=== PATIENT | male | born 1950 | race Two or more races ===

== ENCOUNTER 2017-10-22 13:11 | Emergency (ER) | payer MEDICARE, OTHER ==
[~2017-10-22] VITALS: Ht 162.6 cm; Wt 99.8 kg
[2017-10-22 13:30] VITALS: BP 158/62
[2017-10-22 14:15] VITALS: BP_SYST 108; BP_SYST 117; BP_SYST 125; BP_DIAS 52; BP_DIAS 59; BP_DIAS 62
--- NOTE | 2017-10-22 14:22 | Diagnostic Imaging Report ---
Indication: Abdominal pain Comparison: None Single view of the abdomen obtained Findings: Bowel gas pattern is nonspecific. No mass, ectopic calcifications, or abnormal gas collections are identified. The bones are osteopenic. Impression: No acute findings
--- NOTE | 2017-10-22 14:23 | Diagnostic Imaging Report ---
Indication: Dyspnea Comparison: None A single view chest radiograph was obtained. Findings: No definite infiltrate or pulmonary vascular congestion identified. The heart is enlarged. The aorta is mildly enlarged consistent with atherosclerotic vascular disease. The bones are osteopenic. Impression: No acute disease
[2017-10-22 14:28] LABS: BASOPHILS % (AUTO) 0.7 % (0.0-2.0); EOSINOPHILS % (AUTO) 3.3 % (0.0-3.0); HEMATOCRIT 39.1 % (42.0-52.0); HEMOGLOBIN 13.9 G/DL (14.2-18.0); LYMPHOCYTES % (AUTO) 21.1 % (20.0-45.0); MEAN CORPUSCULAR VOLUME 89 FL (80-99); NEUTROPHILS % (AUTO) 67.9 % (45.0-75.0); PLATELET COUNT 280 K/UL (150-450); RED CELL DISTRIBUTION WIDTH 11.3 % (11.6-14.8); WHITE BLOOD COUNT 9.7 K/UL (4.8-10.8)
[2017-10-22] MEDS ORDERED: FLOMAX0.4 MG ORAL (14:31)
[2017-10-22] MEDS ORDERED: OMEPRAZOLE20 M2 ORAL (14:31)
[2017-10-22] MEDS ORDERED: GLIPIZIDE5 MG ORAL (14:31)
[2017-10-22] MEDS ORDERED: METFORMIN HCL1000 M1 ORAL (14:31)
[2017-10-22] MEDS ORDERED: AMLODIPINE BES2.5 MG ORAL (14:32)
[2017-10-22] MEDS ORDERED: LOSARTAN POTASS50 MG ORAL (14:32)
[2017-10-22 14:41] LABS: ANION GAP 8 mmol/L (5-15); BLOOD UREA NITROGEN 12 mg/dL (7-18); CALCIUM 8.9 MG/DL (8.5-10.1); CARBON DIOXIDE 25 MMOL/L (21-32); CHLORIDE 94 MMOL/L (98-107); POTASSIUM 4.3 MMOL/L (3.5-5.1); SODIUM 126 MMOL/L (136-145)
[2017-10-22 14:46] LABS: INR 0.9 (0.9-1.1)
[2017-10-22 14:49] LABS: ALANINE AMINOTRANSFERASE 38 U/L (12-78); ALBUMIN 3.9 G/DL (3.4-5.0); ALBUMIN/GLOBULIN RATIO 1.2 (1.0-2.7); ALKALINE PHOSPHATASE 73 U/L (46-116); ASPARTATE AMINO TRANSFERASE 14 U/L (15-37); BILIRUBIN,TOTAL 0.5 MG/DL (0.2-1.0)
[2017-10-22 15:40] VITALS: BP 129/69
[2017-10-22 15:52] LABS: APPEARANCE,URINE CLEAR; BILIRUBIN, URINE NEGATIVE (NEGATIVE); GLUCOSE, URINE (UA) NEGATIVE (NEGATIVE); KETONES,URINE NEGATIVE (NEGATIVE); LEUKOCYTE ESTERASE ,URINE NEGATIVE (NEGATIVE); NITRITE,URINE NEGATIVE (NEGATIVE); PH,URINE 6 (4.5-8.0); PROTEIN,URINE NEGATIVE (NEGATIVE); UROBILINOGEN,URINE NORMAL MG/DL (0.0-1.0)
[2017-10-22 15:54] LABS: COLOR,URINE YELLOW
--- NOTE | 2017-10-22 16:12 | Emergency Room Report ---
History of Present Illness General Chief Complaint: Gastrointestinal Bleed Source: Patient Present Illness HPI Patient presents with 2 days of rectal bleeding. He has a photo of blood in the toilet and on TP. Denies pain, fever, NV. Spends a lot of time sitting on toilet and even sometimes falls asleep there while either urinating or moving bowels. No colonoscopy. He denies dizziness when he stands, chest pain, dyspnea. No bruising or other bleeding. He takes fiber daily. Had endoscopy several years ago, reason unclear (possibly gastritis or ulcer). Was seen by PMD and advised to come to ED. H/O HTN and DM. On oral meds. States glucose fairly well controlled. Anxious about the bleeding. Allergies: Coded Allergies: No Known Allergies (Unverified , 10/22/17) Patient History Past Medical History: see triage record Social History: Denies: smoking Social History Narrative Reviewed Nursing Documentation: PMH: Agreed; PSxH: Agreed Nursing Documentation-PMH Past Medical History: No History, Except For Hx Cardiac Problems: No - high cholesterol Hx Hypertension: Yes Hx Pacemaker: No Hx Asthma: No Hx COPD: No Hx Diabetes: Yes Hx Cancer: No Hx Gastrointestinal Problems: No Hx Dialysis: No History Of Psychiatric Problem: No Hx Neurological Problems: No Hx Cerebrovascular Accident: No Hx Seizures: No Review of Systems All Other Systems: negative except mentioned in HPI Physical Exam Vital Signs Date Time Temp Pulse Resp B/P (MAP) Pulse Ox O2 Delivery O2 Flow Rate FiO2 10/22/17 13:20 98.0 80 16 121/68 94 Room Air 98.1 Sp02 EP Interpretation: reviewed, normal - slightly low as interpreted by me General Appearance: well appearing, no apparent distress, GCS 15, obese Head: normocephalic Eyes: bilateral eye normal inspection, bilateral eye PERRL ENT: moist mucus membranes Neck: supple Respiratory: lungs clear, normal breath sounds Cardiovascular #1: regular rate, rhythm Cardiovascular #2: 2+ radial (R) Gastrointestinal: normal inspection, normal bowel sounds, non tender, no mass, non-distended Rectal: heme positive stool - brown color, other - no external hemorrhoids, no masses felt Genitourinary: no CVA tenderness Musculoskeletal: back normal, gait/station normal, normal range of motion Neurologic: alert, oriented x3 Skin: normal inspection, warm/dry Medical Decision Making Diagnostic Impression: Primary Impression: Lower gastrointestinal bleed Additional Impression: Diabetes Qualified Codes: E11.9 - Type 2 diabetes mellitus without complications ER Course Patient presents after passing blood per rectum in past 2 days. DDx: hemorrhoids, diverticulitis, metastatic lesion amongst others. Evaluation with EKG, abd films, CXR, labs. IV extablished and will perform cariac monitor. Bit appear anemic. Consideration for admission if abnormal VS or labs EKG no injury. CXR, unremarkable, Abd films - NSBGP, no obstruction. Labs with good H/H and WBC. CMP significant for elevated glucose and slightly low sodium. Hemodynamically stable and no evidence of more bleedgin. Discussed with patient need for colonoscopy. He and want to go home. Patient stable for outpatient observation and treatment. Laboratory Tests Test 10/22/17 13:55 10/22/17 14:30 White Blood Count 9.7 K/UL (4.8-10.8) Red Blood Count 4.40 M/UL (4.70-6.10) L Hemoglobin 13.9 G/DL (14.2-18.0) L Hematocrit 39.1 % (42.0-52.0) L Mean Corpuscular Volume 89 FL (80-99) Mean Corpuscular Hemoglobin 31.5 PG (27.0-31.0) H Mean Corpuscular Hemoglobin Concent 35.5 G/DL (32.0-36.0) Red Cell Distribution Width 11.3 % (11.6-14.8) L Platelet Count 280 K/UL (150-450) Mean Platelet Volume 5.3 FL (6.5-10.1) L Neutrophils (%) (Auto) 67.9 % (45.0-75.0) Lymphocytes (%) (Auto) 21.1 % (20.0-45.0) Monocytes (%) (Auto) 7.0 % (1.0-10.0) Eosinophils (%) (Auto) 3.3 % (0.0-3.0) H Basophils (%) (Auto) 0.7 % (0.0-2.0) Prothrombin Time 9.8 SEC (9.30-11.50) Prothrombin Time INR 0.9 (0.9-1.1) PTT 29 SEC (23-33) Sodium Level 126 MMOL/L (136-145) L Potassium Level 4.3 MMOL/L (3.5-5.1) Chloride Level 94 MMOL/L (98-107) L Carbon Dioxide Level 25 MMOL/L (21-32) Anion Gap 8 mmol/L (5-15) Blood Urea Nitrogen 12 mg/dL (7-18) Creatinine 1.0 MG/DL (0.55-1.30) Estimate Glomerular Filtration Rate > 60 mL/min (>60) Glucose Level 192 MG/DL (74-106) H Calcium Level 8.9 MG/DL (8.5-10.1) Total Bilirubin 0.5 MG/DL (0.2-1.0) Aspartate Amino Transferase (AST) 14 U/L (15-37) L Alanine Aminotransferase (ALT) 38 U/L (12-78) Alkaline Phosphatase 73 U/L (46-116) Troponin I 0.000 ng/mL (0.000-0.056) Total Protein 7.1 G/DL (6.4-8.2) Albumin 3.9 G/DL (3.4-5.0) Globulin 3.2 g/dL Albumin/Globulin Ratio 1.2 (1.0-2.7) Lipase 155 U/L (73-393) Urine Color Yellow Urine Appearance Clear Urine pH 6 (4.5-8.0) Urine Specific [place] 1.010 (1.005-1.035) Urine Protein Negative (NEGATIVE) Urine Glucose (UA) Negative (NEGATIVE) Urine Ketones Negative (NEGATIVE) Urine Occult Blood Negative (NEGATIVE) Urine Nitrite Negative (NEGATIVE) Urine Bilirubin Negative (NEGATIVE) Urine Urobilinogen Normal MG/DL (0.0-1.0) Urine Leukocyte Esterase Negative (NEGATIVE) EKG Diagnostic Results Rate: normal Rhythm: NSR ST Segments: no acute changes Rhythm Strip Diag. Results EP Interpretation: yes Rhythm: NSR, no PVC's, no ectopy Chest X-Ray Diagnostic Results Chest X-Ray Diagnostic Results : Chest X-Ray Ordered: Yes # of Views/Limited/Complete: 1 View Interpretation: no consolidation, no effusion, no pneumothorax Impression: No acute disease Electronically Signed by: Norris Moran MD Other X-Ray Diagnostic Results Other X-Ray Diagnostic Results : X-Ray ordered: abd # of Views/Limited Vs Complete: 2 View Indication: Other Interpretation: no dislocation, nonspecific bowel gas, no sbo, other - inc stool Last Vital Signs Date Time Temp Pulse Resp B/P (MAP) Pulse Ox O2 Delivery O2 Flow Rate FiO2 10/22/17 16:31 98.5 89 19 122/51 96 Room Air Status: improved Disposition: HOME, SELF-CARE Condition: Improved Scripts Lactulose (LACTULOSE*) 20 Gm/30 Ml Solution 30 ML ORAL BID, #240 ML 0 Refills Prov: Norris Moran M.D. 10/22/17 Hydrocortisone Acetate* (ANUSOL-HC*) 25 Mg Supp.rect 1 SUPP RECTAL TWICE A DAY, #14 SUPP Prov: Norris Moran M.D. 10/22/17 Referrals: [facility],REFERRING (PCP) Norris Moran M.D. October 22, 2017 16:12
[2017-10-22] MEDS ORDERED: ANUSOL-HC25 MG RECTAL (16:20)
[2017-10-22] MEDS ORDERED: LACTULOSE20 GM/301 ORAL (16:20)
[2017-10-22 16:31] VITALS: BP 122/51
== END 2017-10-22 16:36 | disposition home or self-care (01) ==
LOC: EMR 14:09 → CANBEDREQ 16:14 → EMR 16:36
DX: K92.2 Gastrointestinal hemorrhage, unspecified (principal); E11.9 Type 2 diabetes mellitus without complications; I10 Essential (primary) hypertension
CPT/HCPCS: 36415; 71045; 74018; 80053; 81003; 82962; 83690; 84484; 85025; 85610; 85730; 86850; 86900; 86901; 93005; 99284

== ENCOUNTER 2018-03-15 06:11 | Day surgery (SDC) | payer MEDICARE ==
[~2018-03-15] VITALS: Ht 162.6 cm; Wt 104.3 kg
[2018-03-15] VITALS (11 sets, daily range): BP systolic 118–148; BP diastolic 54–84
[~2018-03-15 06:11] MED LIST: AMLODIPINE BES2.5 MG ORAL; ANUSOL-HC25 MG RECTAL; FLOMAX0.4 MG ORAL; GLIPIZIDE5 MG ORAL; LACTULOSE20 GM/301 ORAL; LOSARTAN POTASS50 MG ORAL; METFORMIN HCL1000 M1 ORAL; OMEPRAZOLE20 M2 ORAL; Vancomycin Intravitreal Inj LEFT EYE ONE
[2018-03-15] MEDS: Cyclopentolate 1% Opth Sol 2ml LEFT EYE SCH ×4 (06:29→07:05)
[2018-03-15] MEDS: Ciprofloxacin Opth Soln 2.5ml LEFT EYE SCH ×4 (06:30→07:05)
[2018-03-15] MEDS ORDERED: EPINEPHrine 1mg/1ml Amp ONE ×2 (06:30→07:58)
[2018-03-15] MEDS: Diclofenac Sod 0.1% Op Soln LEFT EYE SCH ×4 (06:30→07:05)
[2018-03-15] MEDS: Phenylephrine 10% Opth Soln 5ml LEFT EYE SCH ×4 (06:30→07:05)
[2018-03-15] MEDS ORDERED: Dexamethasone 4mg/ml vial ONE (06:31)
[2018-03-15] MEDS ORDERED: BSS 500ml btl ONE (06:31)
[2018-03-15] MEDS ORDERED: Lidocaine 4% Amp ONE (06:31)
[2018-03-15] MEDS ORDERED: Lidocaine 1% MPF 10mg/ml 5ml ONE ×2 (06:31→06:53)
[2018-03-15] MEDS ORDERED: Carbachol 0.01% Op Soln 1.5ml vial ONE (06:31)
[2018-03-15] MEDS ORDERED: Pred Forte 1% Opth Susp 1ml ONE (06:31)
[2018-03-15] MEDS ORDERED: Lidocaine 2% MPF 5ml Vial INJ ONE (06:31)
[2018-03-15] MEDS ORDERED: Sodium Hyaluronate 14 mg/ml 0.85ml ONE (06:32)
[2018-03-15] MEDS ORDERED: Tetracaine 0.5% Opth 4ml Soln ONE (06:32)
[2018-03-15] MEDS ORDERED: BSS 15ml BTL ONE (06:32)
[2018-03-15] MEDS ORDERED: Povidone-Iodine 5% opth solution ONE (06:32)
[2018-03-15] MEDS ORDERED: Akten 3.5% 1ml Btl ONE (06:41)
[2018-03-15] MEDS: Akten 3.5% 1ml Btl LEFT EYE SCH ×3 (06:47→07:10)
[2018-03-15] MEDS ORDERED: Lidocaine 2% 20mg/ml/Epi 0.005mg/ml 20ml vial ONE (06:51)
[2018-03-15] MEDS ORDERED: Midazolam 2mg/2ml Inj ONE (06:53)
[2018-03-15] MEDS ORDERED: DiphenhydrAMINE 50mg/ml Inj ONE (06:53)
[2018-03-15] MEDS ORDERED: fentaNYL 100 mcg/2 mL IV ONE (06:53)
[2018-03-15] MEDS ORDERED: LR 1000ml 1,000 ML IVLG SCH (06:59)
--- NOTE | 2018-03-15 06:59 | Anethesia Preoperative Eval ---
Anesthesia Pre-op PMH/ROS General Date of Evaluation: Mar 15, 2018 Anesthesiologist: Nelson ASA Score: ASA 2 Mallampati Score Class I : Soft palate, uvula, fauces, pillars visible Class II: Soft palate, uvula, fauces visible Class III: Soft palate, base of uvula visible Class IV: Only hard plate visible Mallampati Classification: Class II Surgeon: Deanna Diagnosis: Left cataract Surgical Procedure: Left cataract extraction with IOL Anesthesia History: none Family History: no anesthesia problems Allergies: Coded Allergies: No Known Allergies (Unverified , 10/22/17) Medications: see eMAR Past Medical History Cardiovascular: Reports: HTN; Denies: CAD, [place], valve dz, arrhythmia, other Pulmonary: Denies: asthma, COPD, LIV[place], other Gastrointestinal/Genitourinary: Denies: GERD, CRI, ESRD, other Neurologic/Psychiatric: Denies: dementia, CVA, depression/anxiety, TIA, other Endocrine: Reports: DM; Denies: hypothyroidism, steroids, other HEENT: Denies: cataract (L), cataract (R), glaucoma, [place] (L), [place] (R), other Hematology/Immune: Denies: anemia, DVT, bleeding disorder, other Musculoskeletal/Integumentary: Denies: OA, RA, DJD, DDD, edema, other Other: obesity PSxH Narrative: Denies Anesthesia Pre-op Phys. Exam Physician Exam Last Vital Signs Date Time Temp Pulse Resp B/P (MAP) Pulse Ox O2 Delivery O2 Flow Rate FiO2 03/15/18 06:53 Room Air 03/15/18 06:45 98.0 75 18 128/67 (87) 96 98.0 Constitutional: NAD Cardiovascular: RRR Respiratory: CTA Airway Exam Mallampati Score: Class II MO: full ROM: full Teeth: intact Anesthesia Pre-op A/P Labs see chart Studies Pre-op Studies: EKG - sr Risk Assessment & Plan Assessment: ASA II Plan: MAC Status Change Before Surgery: No Pre-Antibiotics Drug: N/A Florence Shafer MD Mar 15, 2018 06:59
[2018-03-15] MEDS ORDERED: DiphenhydrAMINE 50mg/ml Inj IVP PRN (07:00)
[2018-03-15] MEDS ORDERED: ATORVASTATIN CA40 MG ORAL (07:03)
[2018-03-15] MEDS ORDERED: MYRBETRIQ25 MG PO (07:03)
[2018-03-15] MEDS ORDERED: BYDUREON2 MG SUBQ (07:03)
[2018-03-15] MEDS ORDERED: COSOPT PF EYE1 EAC1 OP (07:03)
[2018-03-15] MEDS ORDERED: FERROUS SULFAT325 MG ORAL (07:03)
[2018-03-15] MEDS ORDERED: SYNTHROID25 MCG ORAL (07:03)
[2018-03-15] MEDS ORDERED: PANTOPRAZOLE SO40 MG ORAL (07:03)
[2018-03-15] MEDS ORDERED: DOCUSATE SODIU100 MG ORAL (07:03)
--- NOTE | 2018-03-15 07:28 | Pre-Procedure Note/Attestation ---
Pre-Procedure Note/Attestation Complete Prior to Procedure Planned Procedure: left Procedure Narrative: Cataract extraction with intraocular lens Indications for Procedure Pre-Operative Diagnosis: Cataract Attestation I attest that I discussed the nature of the procedure; its benefits; risks and complications; and alternatives (and the risks and benefits of such alternatives ), prior to the procedure, with the patient (or the patient's legal sales representative girls' apparel). I attest that, if there was a reasonable possibility of needing a blood transfusion, the patient (or the patient's legal sales representative girls' apparel) was given the [facility] standardized written summary, pursuant to the [place] Blood Safety Act ([place] Health and Safety Code # 1645, as amended). I attest that I re-evaluated the patient just prior to the surgery and that there has been no change in the patient's H&P, except as documented below: Edwin Huerta MD Mar 15, 2018 07:28
[2018-03-15] MEDS ORDERED: Sterile Water Irrig 1000ml IRRIG ONE (07:30)
[2018-03-15] MEDS ORDERED: NS Irrig 1000ml ONE (07:30)
--- NOTE | 2018-03-15 08:36 | Immediate Post-Op Evaluation ---
Immediate Post-Op Evalulation Immediate Post-Op Evalulation Procedure: LEft cataract extraction with IOL Date of Evaluation: Mar 15, 2018 Time of Evaluation: 08:37 IV Fluids: 300 Blood Products: 0 Estimated Blood Loss: 0 Urinary Output: 0 Blood Pressure Systolic: 146 Blood Pressure Diastolic: 84 Pulse Rate: 85 Respiratory Rate: 17 O2 Sat by Pulse Oximetry: 96 Temperature (Fahrenheit): 98.4 Pain Score (1-10): 0 Nausea: No Vomiting: No Complications 0 Patient Status: awake, reacts, patent, none Hydration Status: adequate Drug: N/A Florence Shafer MD Mar 15, 2018 08:36
--- NOTE | 2018-03-15 08:36 | 48 Hour Post Anesthesia Eval ---
Post Anesthesia Evaluation Procedure: LEft cataract extraction with IOL Date of Evaluation: Mar 15, 2018 Airway: patent Nausea: No Vomiting: No Pain Intensity: 0 Hydration Status: adequate Cardiopulmonary Status: at baseline Mental Status/LOC: patient returned to baseline Post-Anesthesia Complications: 0 Follow-up care needed: ready to discharge Florence Shafer MD Mar 15, 2018 08:36
--- NOTE | 2018-03-15 08:45 | Operative Note - PDOC ---
Operative Note Operative Note Date of Operation/Procedure: Mar 15, 2018 Chief Complaint: poor vision Pre-op Diagnosis: Cataract Procedure: Phacoemulsification with primary implantation of intraocular lens, left eye, complex Post-op Diagnosis: Cataract Post-op Diagnosis: same as pre-op Surgeon: Edwin Huerta Anesthesiologist: Mariana Damon Anesthesia: MAC Specimen: none Complications: none Condition: stable Estimated Blood Loss: none Drains: none Implant(s) used?: Yes Indications for Procedure Poor vision Description of Procedure See dictation Edwin Huerta MD Mar 15, 2018 08:45
--- NOTE | 2018-03-15 20:00 | Operative Note - Dictated ---
DATE OF OPERATION: 03/15/2018 SURGEON: Edwin Huerta M.D. IMMIGRATION OFFICER: None. ANESTHESIA: MAC by Mariana Damon. PREOPERATIVE DIAGNOSES: 1. 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 2. Advanced open-angle glaucoma. POSTOPERATIVE DIAGNOSES: 1. 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 2. Advanced open-angle glaucoma. PRINCIPAL PROCEDURE: Phacoemulsification with primary implantation of posterior chamber intraocular lens, left eye, complex. DESCRIPTION OF PROCEDURE: The patient was evaluated in my office where he was diagnosed with glaucoma in both eyes with severe decreased vision in the left eye. He had moderate degree of cataract, but much more decreased vision than cataract. His intraocular pressure was significantly reduced with topical medications and he underwent laser trabeculoplasty to further reduce pressure. In addition to topical drops, we decided to proceed with cataract extraction in the eye to maximize his potential visual acuity. The risks, benefits, and alternatives were discussed with associated very guarded prognosis. Informed consent was obtained. The patient was therefore brought to the [facility] where the left pupil was dilated and an intravenous line was started. He was brought into the operating room where ocular anesthesia was obtained with topical drops supplemented with intravenous sedation. The left eye was then prepped and draped in the usual fashion for intraocular surgery. A clear corneal temporal incision was made in the anterior chamber filled with Shugarcaine and viscoelastic. The pupil did not dilate well and therefore a 6.25 mm Malyugin ring was positioned to expand the pupil and maintain the iris architecture. A continuous tear capsulotomy was accomplished. Hydrodissection was utilized to facilitate phacoemulsification. A two-handed phacoemulsification technique was then used to fracture the lens nucleus into quadrants and the segments removed in sequence. Irrigation/aspiration hand piece was used to remove all residual lens cortex and yi the posterior capsule. Viscoelastic was introduced. A posterior chamber intraocular lens from [employer], model ZCB00 with a power of 21.5 diopters was folded into the lens insertion cartridge, injected into the posterior chamber of the eye and positioned within the capsular bag. The Malyugin ring was removed. The viscoelastic was removed. The wound was adjusted, made watertight without sutures. Miostat was irrigated to bring the pupil back down over the optic. The intraocular pressure was adjusted to normal. One drop of 10% Betadine, one drop of prednisolone acetate, and one drop of Vigamox were placed on the eye. The eye was covered with an eye shield. This completed the procedure. All sponge and needle counts were correct. The patient was taken to the [facility] in good condition having tolerated the procedure well. Edwin Huerta M.D. DR: TRENT JOB#: [id number] CC: Compa Cole M.D.; Fax#: [phone]
== END 2018-03-15 10:20 | disposition home or self-care (01) ==
LOC: SUR 06:11
DX: H25.812 Combined forms of age-related cataract, left eye (principal); H40.10X0 Unspecified open-angle glaucoma, stage unspecified; I44.0 Atrioventricular block, first degree; E11.9 Type 2 diabetes mellitus without complications; Z79.84 Long term (current) use of oral hypoglycemic drugs; I10 Essential (primary) hypertension; E78.5 Hyperlipidemia, unspecified; E66.2 Morbid (severe) obesity with alveolar hypoventilation; G47.30 Sleep apnea, unspecified; Z79.82 Long term (current) use of aspirin
CPT/HCPCS: 66982; 82962; J0171; J1100; J1200; J2250; J3010; J3370; V2632; 94003; 94150

== ENCOUNTER 2018-09-27 05:13 | Day surgery (SDC) | payer OTHER ==
[~2018-09-27] VITALS: Ht 162.6 cm; Wt 92.5 kg
[2018-09-27] VITALS (7 sets, daily range): BP systolic 127–141; BP diastolic 68–83
[~2018-09-27 05:13] MED LIST changes: +ATORVASTATIN CA20 MG ORAL; +ATORVASTATIN CA40 MG ORAL; +BYDUREON2 MG SUBQ; +COMBIGAN EYE DRO5 ML OP; +COSOPT PF EYE1 EAC1 OP; +DOCUSATE SODIU100 MG ORAL; +FERROUS SULFAT325 MG ORAL; +GLIPIZIDE10 MG PO; +LOSARTAN POTASS25 M1 PO; +LUMIGAN2.5 ML BOTH EYES; +MYRBETRIQ25 MG PO; +NORVASC5 MG ORAL; +PANTOPRAZOLE SO40 MG ORAL; +SYNTHROID25 MCG ORAL; +TAMSULOSIN HCL0.4 MG ORAL; -Vancomycin Intravitreal Inj LEFT EYE ONE
[2018-09-27] MEDS: Ciprofloxacin Opth Soln 2.5ml RIGHT EYE SCH ×4 (05:58→06:37)
[2018-09-27] MEDS: Akten 3.5% 1ml Btl RIGHT EYE SCH ×4 (05:58→06:37)
[2018-09-27] MEDS: Phenylephrine 10% Opth Soln 5ml RIGHT EYE SCH ×4 (05:59→06:37)
[2018-09-27] MEDS: Cyclopentolate 1% Opth Sol 2ml RIGHT EYE SCH ×4 (05:59→06:37)
[2018-09-27] MEDS: Diclofenac Sod 0.1% Op Soln RIGHT EYE SCH ×4 (05:59→06:37)
[2018-09-27] MEDS ORDERED: Lidocaine 1% MPF 10mg/ml 5ml ONE ×2 (07:09→07:20)
[2018-09-27] MEDS ORDERED: Pred Forte 1% Opth Susp 1ml ONE (07:09)
[2018-09-27] MEDS ORDERED: Dexamethasone 4mg/ml vial ONE (07:09)
[2018-09-27] MEDS ORDERED: Lidocaine 4% Amp ONE (07:09)
[2018-09-27] MEDS ORDERED: Maxitrol Opth Oint 3.5gm ONE (07:09)
[2018-09-27] MEDS ORDERED: EPINEPHrine 1mg/1ml Amp ONE (07:09)
[2018-09-27] MEDS ORDERED: Carbachol 0.01% Op Soln 1.5ml vial ONE (07:09)
[2018-09-27] MEDS ORDERED: BSS 500ml btl ONE (07:09)
[2018-09-27] MEDS ORDERED: BSS 15ml BTL ONE (07:10)
[2018-09-27] MEDS ORDERED: Povidone-Iodine 5% opth solution ONE (07:10)
[2018-09-27] MEDS ORDERED: Acetylcholine Injection (OR) ONE (07:10)
[2018-09-27] MEDS ORDERED: Tetracaine 0.5% Opth 4ml Soln ONE (07:10)
[2018-09-27] MEDS ORDERED: Sodium Hyaluronate 14 mg/ml 0.85ml ONE (07:10)
[2018-09-27] MEDS ORDERED: Sodium Hyaluronate 10 mg/ml 0.85ml ONE (07:10)
--- NOTE | 2018-09-27 07:10 | Pre-Procedure Note/Attestation ---
Pre-Procedure Note/Attestation Complete Prior to Procedure Planned Procedure: right Procedure Narrative: Cataract extraction with intraocular lens Indications for Procedure Pre-Operative Diagnosis: Cataract Attestation I attest that I discussed the nature of the procedure; its benefits; risks and complications; and alternatives (and the risks and benefits of such alternatives ), prior to the procedure, with the patient (or the patient's legal traffic representative). I attest that, if there was a reasonable possibility of needing a blood transfusion, the patient (or the patient's legal traffic representative) was given the [facility] standardized written summary, pursuant to the [place] Blood Safety Act ([place] Health and Safety Code # 1645, as amended). I attest that I re-evaluated the patient just prior to the surgery and that there has been no change in the patient's H&P, except as documented below: Edwin Huerta MD Sep 27, 2018 07:10
[2018-09-27] MEDS ORDERED: DiphenhydrAMINE 50mg/ml Inj ONE (07:20)
[2018-09-27] MEDS ORDERED: Midazolam 2mg/2ml Inj ONE (07:20)
[2018-09-27] MEDS ORDERED: fentaNYL 100 mcg/2 mL IV ONE (07:20)
[2018-09-27] MEDS ORDERED: LR 1000ml 1,000 ML IVLG SCH (07:27)
--- NOTE | 2018-09-27 07:27 | Anethesia Preoperative Eval ---
Anesthesia Pre-op PMH/ROS General Date of Evaluation: Sep 27, 2018 Anesthesiologist: Nelson ASA Score: ASA 2 Mallampati Score Class I : Soft palate, uvula, fauces, pillars visible Class II: Soft palate, uvula, fauces visible Class III: Soft palate, base of uvula visible Class IV: Only hard plate visible Mallampati Classification: Class II Surgeon: Deanna Diagnosis: Right cataract Surgical Procedure: Right cataract extraction with IOL Anesthesia History: none Family History: no anesthesia problems Allergies: Coded Allergies: No Known Allergies (Unverified , 10/22/17) Medications: see eMAR Patient NPO?: Yes NPO Date: Sep 26, 2018 NPO Time: 21:30 Past Medical History Cardiovascular: Reports: HTN, other - HLD; Denies: CAD, AR, valve dz, arrhythmia Pulmonary: Denies: asthma, COPD, [place]IV[place], other Gastrointestinal/Genitourinary: Reports: GERD; Denies: CRI, ESRD, other Neurologic/Psychiatric: Denies: dementia, CVA, depression/anxiety, TIA, other Endocrine: Reports: DM, hypothyroidism; Denies: steroids, other HEENT: Reports: cataract (R), glaucoma; Denies: cataract (L), [place] (L), [place] (R), other Hematology/Immune: Reports: anemia; Denies: DVT, bleeding disorder, other Musculoskeletal/Integumentary: Denies: OA, RA, DJD, DDD, edema, other Other: obesity PSxH Narrative: Left cataract Anesthesia Pre-op Phys. Exam Physician Exam Last Vital Signs Date Time Temp Pulse Resp B/P (MAP) Pulse Ox O2 Delivery O2 Flow Rate FiO2 09/27/18 06:08 97.7 82 20 141/72 95 Room Air Constitutional: NAD Cardiovascular: RRR Respiratory: CTA Airway Exam Mallampati Score: Class II MO: full ROM: full Anesthesia Pre-op A/P Labs see chart Studies Pre-op Studies: EKG - sr Risk Assessment & Plan Assessment: ASA II Plan: MAC Status Change Before Surgery: No Pre-Antibiotics Drug: N/A Florence Shafer MD Sep 27, 2018 07:26
[2018-09-27] MEDS ORDERED: LR 1000ml ONE (07:30)
[2018-09-27] MEDS ORDERED: LORazepam Inj 2mg/ml 1ml IV PRN (07:30)
[2018-09-27] MEDS ORDERED: NS Irrig 1000ml ONE (07:30)
[2018-09-27] MEDS ORDERED: Sterile Water Irrig 1000ml IRRIG ONE (07:30)
[2018-09-27] MEDS ORDERED: DiphenhydrAMINE 50mg/ml Inj IVP PRN (07:30)
--- NOTE | 2018-09-27 08:33 | 48 Hour Post Anesthesia Eval ---
Post Anesthesia Evaluation Procedure: Right cataract extraction with IOL Date of Evaluation: Sep 27, 2018 Airway: patent Nausea: No Vomiting: No Pain Intensity: 0 Hydration Status: adequate Cardiopulmonary Status: at baseline Mental Status/LOC: patient returned to baseline Post-Anesthesia Complications: 0 Follow-up care needed: ready to discharge Florence Shafer MD Sep 27, 2018 08:33
--- NOTE | 2018-09-27 08:33 | Immediate Post-Op Evaluation ---
Immediate Post-Op Evalulation Immediate Post-Op Evalulation Procedure: Right cataract extraction with IOL Date of Evaluation: Sep 27, 2018 Time of Evaluation: 08:35 IV Fluids: 500 Blood Products: 0 Estimated Blood Loss: 0 Urinary Output: 0 Blood Pressure Systolic: 129 Blood Pressure Diastolic: 83 Pulse Rate: 84 Respiratory Rate: 15 O2 Sat by Pulse Oximetry: 98 Temperature (Fahrenheit): 97.3 Pain Score (1-10): 0 Nausea: No Vomiting: No Complications 0 Patient Status: awake, reacts, patent, none Hydration Status: adequate Drug: N/A Florence Shafer MD Sep 27, 2018 08:33
--- NOTE | 2018-09-27 08:38 | Operative Note - PDOC ---
Operative Note Operative Note Date of Operation/Procedure: Sep 27, 2018 Chief Complaint: Poor vision, right eye Pre-op Diagnosis: Cataract, right eye Procedure: Cataract with intraocular lens, right eye Post-op Diagnosis: Cataract, right eye Post-op Diagnosis: same as pre-op Surgeon: Deanna Anesthesiologist: Nelson Anesthesia: MAC Specimen: none Complications: none Condition: stable Estimated Blood Loss: none Drains: none Implant(s) used?: Yes Edwin Huerta MD Sep 27, 2018 08:38
--- NOTE | 2018-09-27 16:45 | Operative Note - Dictated ---
DATE OF OPERATION: 09/27/2018 SURGEON: Edwin Huerta M.D. DIRECTOR OF SOFTWARE DEVELOPMENT: None. ANESTHESIA: MAC by Dr. Damon. PREOPERATIVE DIAGNOSES: 1. Combined mechanism age-related cataract, right eye. 2. Chronic open-angle glaucoma, both eyes. 3. Pseudophakia, left eye. POSTOPERATIVE DIAGNOSES: 1. Combined mechanism age-related cataract, right eye. 2. Chronic open-angle glaucoma, both eyes. 3. Pseudophakia, left eye. PRINCIPAL PROCEDURE: Phacoemulsification with primary implantation of posterior chamber intraocular lens, right eye. DESCRIPTION OF PROCEDURE: The patient was evaluated in my office for sometime. He has had chronic open-angle glaucoma, which has been difficult to manage with topical medications. He has undergone selective laser trabeculoplasty. He underwent cataract extraction to the left eye in February of 2018. He has had gradually decreasing vision in his right eye associated with increased cataract. After discussing the risks, benefits, and alternatives, informed consent was obtained to proceed with cataract extraction in the right eye. The patient was therefore brought to the [facility] where the right pupil was dilated and an intravenous line was started. He was brought into the operating room where ocular anesthesia was obtained with topical drops supplemented with intravenous sedation. The right eye was prepped and draped in the usual fashion for intraocular surgery. A clear corneal temporal incision was made in the anterior chamber filled with Shugarcaine and viscoelastic. A continuous tear capsulotomy was accomplished. Hydrodissection was utilized to facilitate phacoemulsification. A two-handed phacoemulsification technique was then used to fracture the lens nucleus into quadrants and the segments removed in sequence. The irrigation/aspiration hand piece was used to remove all residual lens cortex and [place] the posterior capsule. Viscoelastic was introduced. Intraocular lens from [employer], model ZCB00 with a power of 21.0 diopters was folded into the lens insertion cartridge, injected into the posterior chamber of the eye and positioned within the capsular bag. The viscoelastic was removed. The wound was adjusted, made watertight without sutures. The intraocular pressure was adjusted to normal. One drop of 10% Betadine, one drop of prednisolone acetate, and one drop of Vigamox were placed on the eye. The eye was covered with an eye shield. This completed the procedure. All sponge and needle counts were correct. The patient was taken to [facility] in a good condition having tolerated the procedure well. Edwin Huerta M.D. DR: MARY JOB#: [id number] CC: Sagar Clay M.D.; Fax#: [phone] KIERAN MILLER M.D. ; FAX#: [phone]
== END 2018-09-27 09:45 | disposition home or self-care (01) ==
LOC: SUR 05:13
DX: H25.811 Combined forms of age-related cataract, right eye (principal); H40.10X0 Unspecified open-angle glaucoma, stage unspecified; Z96.1 Presence of intraocular lens; I10 Essential (primary) hypertension; E11.9 Type 2 diabetes mellitus without complications; E78.5 Hyperlipidemia, unspecified; G47.33 Obstructive sleep apnea (adult) (pediatric); E03.9 Hypothyroidism, unspecified; K21.9 Gastro-esophageal reflux disease without esophagitis; E66.9 Obesity, unspecified; Z68.35 Body mass index [BMI] 35.0-35.9, adult
CPT/HCPCS: 66984; 82962; J0171; J1100; J1200; J2250; J3010; J3370; V2632; 94003; 94150